=== PATIENT | female | born 1995 | race Caucasian/White ===

== ENCOUNTER 2018-06-19 13:22 | Emergency (ER) | payer MEDICAID, OTHER ==
[~2018-06-19] VITALS: Ht 147.3 cm; Wt 75.0 kg
[2018-06-19] MEDS ORDERED: HYDROCODONE/ACETAMINOPHEN 5/325MG TABLET PO ONE (18:00)
[2018-06-19 19:42] VITALS: BP 131/87
== END 2018-06-19 19:44 | disposition home or self-care (01) ==
LOC: ER 13:57
DX: S60.211A Contusion of right wrist, initial encounter (principal); S20.20XA Contusion of thorax, unspecified, initial encounter; F12.10 Cannabis abuse, uncomplicated; W10.8XXA Fall (on) (from) other stairs and steps, initial encounter; Y93.89 Activity, other specified; Y92.89 Other specified places as the place of occurrence of the external cause
CPT/HCPCS: 29125; 71101; 73110; 73130; 81025; 99283

== ENCOUNTER 2021-04-08 00:37 | Inpatient (IN) | payer MEDICAID, OTHER ==
[2021-04-08] VITALS (8 sets, daily range): BP systolic 89–105; BP diastolic 47–60
[~2021-04-08] VITALS: Ht 157.5 cm; Wt 76.7 kg
[2021-04-08 01:18] LABS: BASOPHILS % 0.8 % (0.0-2.0); EOSINOPHILS % 3.2 % (0.0-5.0); HEMATOCRIT. 40.1 % (36.0-48.0); HEMOGLOBIN. 13.2 g/dL (12.0-16.0); LYMPHOCYTES % 28.9 % (20.0-50.0); MEAN CORPUSCULAR HEMOGLOBIN 28.9 pg (28.0-32.0); MEAN CORPUSCULAR VOLUME 87.7 fL (81.0-99.0); MEAN PLATELET VOLUME 8.6 fl (7.4-10.4); MONOCYTES % 6.6 % (2.0-8.0); NEUTROPHILS % 60.5 % (40.0-76.0); PLATELET 294 x1000/uL (130-400); RED BLOOD CELL COUNT 4.57 mill/uL (4.2-5.4); RED CELL DISTRIBUTION WIDTH 13.8 % (11.6-14.6)
[2021-04-08 01:28] LABS: CHLORIDE 110 mEq/L (98-107)
[2021-04-08] MEDS ORDERED: LEVETIRACETAM 500MG PREMIX 100 ML IV NR (01:30)
[2021-04-08 01:32] LABS: ETHANOL BLOOD < 10 mg/dL
[2021-04-08 01:36] LABS: CREATINE KINASE 162 IU/L (26-192)
[2021-04-08 02:05] LABS: CLARITY URINE CLEAR (CLEAR); COLOR URINE YELLOW (YELLOW); KETONES URINE NEGATIVE (NEGATIVE); LEUKOCYTE ESTERASE URINE TRACE (NEGATIVE); NITRITE URINE NEGATIVE (NEGATIVE); OCCULT BLOOD URINE NEGATIVE (NEGATIVE); PROTEIN URINE NEGATIVE (NEGATIVE); SPECIFIC GRAVITY URINE 1.027 (1.005-1.030); UROBILINOGEN URINE 0.2 E.U./dL (0.2-1.0)
[2021-04-08 02:21] LABS: *AMPHETAMINES SCREEN URINE NEGATIVE (NEGATIVE); *BARBITURATES SCREEN URINE NEGATIVE (NEGATIVE); OPIATES URINE SCREEN NEGATIVE (NEGATIVE); PHENCYCLIDINE URINE SCREEN NEGATIVE (NEGATIVE)
[2021-04-08 02:22] LABS: *COCAINE SCREEN URINE NEGATIVE (NEGATIVE); CANNABINOID URINE SCREEN NEGATIVE (NEGATIVE); METHADONE URINE SCREEN NEGATIVE (NEGATIVE)
[2021-04-08 02:25] LABS: *BENZODIAZEPINES SCREEN URINE PRESUMTIVE POSITIVE (NEGATIVE)
[2021-04-08] MEDS ORDERED: CEFTRIAXONE 1 G PREMIX 50 ML IV NR (03:00)
[2021-04-08] MEDS ORDERED: ONDANSETRON HCL 4MG/2ML INJ IV PRN (08:45)
[2021-04-08] MEDS ORDERED: HYDROCODONE/ACETAMINOPHEN 10/325MG TABLET PO PRN (09:30)
[2021-04-08] MEDS: LEVETIRACETAM 500MG TABLET PO SCH ×2 (09:34→21:26)
[2021-04-08] MEDS ORDERED: NALOXONE HCL 0.4MG/ML VIAL IV PRN (09:45)
[2021-04-08] MEDS: KETOROLAC 30MG/ML VIAL IV PRN (15:04)
[2021-04-08] MEDS: ACETAMINOPHEN 325MG TABLET PO PRN (18:25)
[2021-04-09] VITALS: BP 97/63
[2021-04-09] MEDS: KETOROLAC 30MG/ML VIAL IV PRN ×2 (00:04→16:06)
[2021-04-09] MEDS: LORAZEPAM 2MG/ML CPJ IV PRN ×4 (00:14→20:57)
[2021-04-09 04:00] VITALS: BP 91/40
[2021-04-09 08:20] VITALS: BP 90/51
[2021-04-09] MEDS: LEVETIRACETAM 500MG TABLET PO SCH ×2 (08:49→20:57)
[2021-04-09 09:08] LABS: UCG SCREEN NEGATIVE
[2021-04-09 12:00] VITALS: BP 93/56
[2021-04-09 16:04] VITALS: BP 100/55
[2021-04-09] MEDS: ACETAMINOPHEN 325MG TABLET PO PRN (18:42)
[2021-04-09 20:00] VITALS: BP 117/69
[2021-04-10] VITALS: BP 92/52
[2021-04-10 04:00] VITALS: BP 104/66
[2021-04-10] MEDS: LORAZEPAM 2MG/ML CPJ IV PRN ×3 (06:23→19:09)
[2021-04-10] MEDS: KETOROLAC 30MG/ML VIAL IV PRN ×3 (06:24→19:09)
[2021-04-10] MEDS: MORPHINE SULFATE 2 MG/ML CPJ (NOT FOR IM USE) IV NR (07:20)
[2021-04-10 08:00] VITALS: BP 112/74
[2021-04-10] MEDS: LEVETIRACETAM 500MG TABLET PO SCH ×2 (08:42→20:55)
[2021-04-10] MEDS ORDERED: GADOTERATE MEGLUMINE 5 MMOL/10 ML VIAL IV ONE (10:12)
[2021-04-10 12:00] VITALS: BP 100/61
[2021-04-10] MEDS: ACETAMINOPHEN 325MG TABLET PO PRN (15:46)
[2021-04-10 16:00] VITALS: BP 106/68
[2021-04-10 20:00] VITALS: BP 114/48
[2021-04-11] VITALS: BP 93/55
[2021-04-11] MEDS: HYDROCODONE/ACETAMINOPHEN 5/325MG TABLET PO PRN ×2 (00:53→17:52)
[2021-04-11 04:00] VITALS: BP 104/64
[2021-04-11] MEDS: MORPHINE SULFATE 2 MG/ML CPJ (NOT FOR IM USE) IV NR (07:26)
[2021-04-11 08:00] VITALS: BP 99/59
[2021-04-11] MEDS: LEVETIRACETAM 500MG TABLET PO SCH ×2 (09:49→20:28)
[2021-04-11 12:00] VITALS: BP 105/62
[2021-04-11] MEDS: LORAZEPAM 2MG/ML CPJ IV PRN ×2 (12:00→20:29)
[2021-04-11 16:00] VITALS: BP 107/68
[2021-04-11 20:00] VITALS: BP 95/50
[2021-04-11] MEDS: ACETAMINOPHEN 325MG TABLET PO PRN (20:31)
[2021-04-12] VITALS: BP 91/41
[2021-04-12 04:00] VITALS: BP 105/52
[2021-04-12] MEDS: KETOROLAC 30MG/ML VIAL IV PRN ×2 (06:02→14:35)
[2021-04-12 08:00] VITALS: BP 90/56
[2021-04-12] MEDS: LEVETIRACETAM 500MG TABLET PO SCH ×2 (09:02→21:37)
[2021-04-12 12:00] VITALS: BP 99/54
[2021-04-12] MEDS: LORAZEPAM 2MG/ML CPJ IV PRN ×3 (12:24→17:52)
[2021-04-12 16:00] VITALS: BP 100/59
[2021-04-12 20:00] VITALS: BP 98/58
[2021-04-13] VITALS: BP 105/54
[2021-04-13 04:00] VITALS: BP 102/55
[2021-04-13 08:00] VITALS: BP 95/60
[2021-04-13] MEDS: LEVETIRACETAM 500MG TABLET PO SCH (08:30)
[2021-04-13] MEDS ORDERED: KEPP500 PO (11:07)
[2021-04-13 12:00] VITALS: BP 100/59
[2021-04-13] MEDS: ACETAMINOPHEN 325MG TABLET PO PRN (13:25)
[2021-04-13 16:05] VITALS: BP 100/59
== END 2021-04-13 17:54 | disposition home or self-care (01) | DRG 53 ==
LOC: ER 00:37 → 6WST 03:56 → ENRESERV 07:13
PROVIDERS: ADMIT Internal Medicine; ATTEND Internal Medicine
PROC: 4A10X4Z Monitoring of Central Nervous Electrical Activity, External Approach (ICD-10-PCS; principal; 2021-04-12)
DX: G40.909 Epilepsy, unspecified, not intractable, without status epilepticus (principal); E23.6 Other disorders of pituitary gland; E87.8 Other disorders of electrolyte and fluid balance, not elsewhere classified; D35.2 Benign neoplasm of pituitary gland; G47.00 Insomnia, unspecified; N39.0 Urinary tract infection, site not specified; R53.81 Other malaise; J45.909 Unspecified asthma, uncomplicated; Z80.1 Family history of malignant neoplasm of trachea, bronchus and lung; Z80.42 Family history of malignant neoplasm of prostate; Z82.49 Family history of ischemic heart disease and other diseases of the circulatory system; Z83.3 Family history of diabetes mellitus; Z87.891 Personal history of nicotine dependence
CPT/HCPCS: 36415; 70553; 71045; 72141; 72146; 72148; 80053; 80305; 80320; 81003; 81025; 82140; 82550; 82962; 84443; 85025; 93005; 95816; 97112; 97162; 99285; A9577; C1893; J0696; J1885; J1953; J2060; J2270; G0480

== ENCOUNTER 2021-10-19 12:46 | Emergency (ER) | payer MEDICAID ==
[~2021-10-19] VITALS: Ht 147.3 cm; Wt 71.0 kg
[~2021-10-19 12:46] MED LIST: KEPP500 PO
[2021-10-19] MEDS ORDERED: DIPHENHYDRAMINE 50MG/ML VIAL IV ONE (13:30)
[2021-10-19] MEDS ORDERED: ACETAMINOPHEN 325MG TABLET PO STA (13:30)
[2021-10-19] MEDS ORDERED: PROCHLORPERAZINE 10MG/2ML VIAL IV ONE (13:30)
[2021-10-19] MEDS ORDERED: SODIUM CHLORIDE 0.9% 1,000 ML IV ONE (13:30)
[2021-10-19 14:28] LABS: BASOPHILS % 0.5 % (0.0-2.0); EOSINOPHILS % 2.5 % (0.0-5.0); HEMATOCRIT. 40.1 % (36.0-48.0); HEMOGLOBIN. 13.4 g/dL (12.0-16.0); LYMPHOCYTES % 37.3 % (20.0-50.0); MEAN CORPUSCULAR HEMOGLOBIN 29.4 pg (28.0-32.0); MEAN CORPUSCULAR VOLUME 87.8 fL (81.0-99.0); MONOCYTES % 6.1 % (2.0-8.0); NEUTROPHILS % 53.6 % (40.0-76.0); PLATELET 242 x1000/uL (130-400); RED BLOOD CELL COUNT 4.57 mill/uL (4.2-5.4); RED CELL DISTRIBUTION WIDTH 13.7 % (11.6-14.6)
[2021-10-19 14:37] LABS: CHLORIDE 107 mEq/L (98-107)
[2021-10-19 14:40] LABS: HCG SCREEN NEGATIVE
[2021-10-19 14:50] LABS: ETHANOL BLOOD < 10 mg/dL
[2021-10-19 15:57] LABS: CLARITY URINE CLEAR (CLEAR); COLOR URINE YELLOW (YELLOW); KETONES URINE TRACE (NEGATIVE); LEUKOCYTE ESTERASE URINE NEGATIVE (NEGATIVE); NITRITE URINE NEGATIVE (NEGATIVE); OCCULT BLOOD URINE NEGATIVE (NEGATIVE); PH URINE 7.5 (4.5-8.0); PROTEIN URINE TRACE (NEGATIVE); SPECIFIC GRAVITY URINE 1.029 (1.005-1.030)
[2021-10-19 16:13] LABS: *AMPHETAMINES SCREEN URINE NEGATIVE (NEGATIVE); *BARBITURATES SCREEN URINE NEGATIVE (NEGATIVE); *BENZODIAZEPINES SCREEN URINE NEGATIVE (NEGATIVE); *COCAINE SCREEN URINE NEGATIVE (NEGATIVE); CANNABINOID URINE SCREEN NEGATIVE (NEGATIVE); METHADONE URINE SCREEN NEGATIVE (NEGATIVE); OPIATES URINE SCREEN NEGATIVE (NEGATIVE); PHENCYCLIDINE URINE SCREEN NEGATIVE (NEGATIVE)
[2021-10-19] MEDS ORDERED: KETOROLAC 15MG/ML VIAL IV ONE (16:30)
[2021-10-19] MEDS ORDERED: KETOROLAC 15MG/ML VIAL IV NR (22:30)
[2021-10-19 23:41] VITALS: BP 106/64
== END 2021-10-19 23:40 | disposition short-term general hospital (02) ==
LOC: ER 12:46
DX: R20.2 Paresthesia of skin (principal); R51.9 Headache, unspecified; R07.2 Precordial pain; R41.0 Disorientation, unspecified; R20.0 Anesthesia of skin; H53.143 Visual discomfort, bilateral
CPT/HCPCS: 36415; 70450; 80053; 80305; 80320; 81003; 81025; 82962; 84484; 84703; 85025; 93005; 96361; 96374; 96375; 96376; 99285; J0780; J1200; J1885; J7030; G0480

== ENCOUNTER 2021-10-26 18:18 | Emergency (ER) | payer MEDICAID ==
[~2021-10-26] VITALS: Ht 160 cm; Wt 70.0 kg
[2021-10-26 18:33] VITALS: BP 112/78
[2021-10-26 21:38] LABS: BASOPHILS % 0.7 % (0.0-2.0); EOSINOPHILS % 2.9 % (0.0-5.0); HEMATOCRIT. 40.6 % (36.0-48.0); HEMOGLOBIN. 13.6 g/dL (12.0-16.0); LYMPHOCYTES % 31.7 % (20.0-50.0); MEAN CORPUSCULAR HEMOGLOBIN 29.4 pg (28.0-32.0); MEAN CORPUSCULAR VOLUME 87.8 fL (81.0-99.0); MEAN PLATELET VOLUME 8.7 fl (7.4-10.4); MONOCYTES % 5.9 % (2.0-8.0); NEUTROPHILS % 58.8 % (40.0-76.0); PLATELET 236 x1000/uL (130-400); RED BLOOD CELL COUNT 4.62 mill/uL (4.2-5.4); RED CELL DISTRIBUTION WIDTH 13.5 % (11.6-14.6)
[2021-10-26 21:46] LABS: PROTHROMBIN TIME 11.1 sec (9.6-11.0)
[2021-10-26 21:47] LABS: HCG SCREEN NEGATIVE
[2021-10-26] MEDS ORDERED: NAPR500T7 MT (23:35)
[2021-10-26] MEDS ORDERED: CEPH500C2 MT (23:35)
== END 2021-10-26 23:54 | disposition home or self-care (01) ==
LOC: ER 18:18
DX: I80.8 Phlebitis and thrombophlebitis of other sites (principal)
CPT/HCPCS: 36415; 73130; 84703; 85025; 99284

== ENCOUNTER 2022-02-28 14:46 | Emergency (ER) | payer MEDICAID, OTHER ==
[~2022-02-28] VITALS: Ht 147.3 cm; Wt 71.0 kg
[~2022-02-28 14:46] MED LIST changes: +CEPH500C2 MT; +NAPR500T7 MT
[2022-02-28] MEDS ORDERED: KETOROLAC 30MG/ML VIAL IV STA (18:12)
[2022-02-28] MEDS ORDERED: SODIUM CHLORIDE 0.9% 1,000 ML IV ONE (18:15)
[2022-02-28] MEDS ORDERED: METOCLOPRAMIDE HCL 10MG/2ML VIAL IV ONE (18:15)
[2022-02-28] MEDS ORDERED: DIPHENHYDRAMINE 50MG/ML VIAL IV ONE (18:15)
[2022-02-28 18:44] LABS: BASOPHILS % 0.4 % (0.0-2.0); EOSINOPHILS % 2.2 % (0.0-5.0); HEMATOCRIT. 41.7 % (36.0-48.0); LYMPHOCYTES % 26.7 % (20.0-50.0); MEAN CORPUSCULAR HEMOGLOBIN 29.8 pg (28.0-32.0); MEAN CORPUSCULAR VOLUME 88.8 fL (81.0-99.0); MEAN PLATELET VOLUME 8.8 fl (7.4-10.4); MONOCYTES % 5.7 % (2.0-8.0); PLATELET 239 x1000/uL (130-400); RED CELL DISTRIBUTION WIDTH 14.2 % (11.6-14.6)
[2022-02-28 18:48] LABS: CHLORIDE 106 mEq/L (98-107)
[2022-02-28 18:57] LABS: HCG SCREEN NEGATIVE
[2022-02-28] MEDS ORDERED: IBUP-2028 MT (19:59)
[2022-02-28 22:19] VITALS: BP 123/75
== END 2022-02-28 22:40 | disposition home or self-care (01) ==
LOC: ER 14:46
DX: R51.9 Headache, unspecified (principal); R53.1 Weakness; R42 Dizziness and giddiness; E23.7 Disorder of pituitary gland, unspecified; G40.909 Epilepsy, unspecified, not intractable, without status epilepticus; J45.909 Unspecified asthma, uncomplicated; Z79.899 Other long term (current) drug therapy
CPT/HCPCS: 36415; 70450; 80053; 81025; 84703; 85025; 96374; 96375; 99284; J1200; J1885; J2765; J7030

== ENCOUNTER 2022-06-12 02:33 | Emergency (ER) | payer MEDICAID, OTHER ==
[~2022-06-12] VITALS: Ht 147.3 cm; Wt 66.1 kg
[~2022-06-12 02:33] MED LIST changes: +IBUP-2028 MT
[2022-06-12 02:51] VITALS: BP 106/76
[2022-06-12 06:25] LABS: CLARITY URINE CLEAR (CLEAR); COLOR URINE YELLOW (YELLOW); KETONES URINE NEGATIVE (NEGATIVE); LEUKOCYTE ESTERASE URINE NEGATIVE (NEGATIVE); NITRITE URINE NEGATIVE (NEGATIVE); OCCULT BLOOD URINE NEGATIVE (NEGATIVE); PH URINE 5.5 (4.5-8.0); PROTEIN URINE TRACE (NEGATIVE)
[2022-06-12 07:07] LABS: HEMATOCRIT. 46.7 % (36.0-48.0); HEMOGLOBIN. 15.8 g/dL (12.0-16.0); MEAN CORPUSCULAR VOLUME 88.9 fL (81.0-99.0); MEAN PLATELET VOLUME 9.3 fl (7.4-10.4); PLATELET 159 x1000/uL (130-400); RED BLOOD CELL COUNT 5.25 mill/uL (4.2-5.4); RED CELL DISTRIBUTION WIDTH 14.4 % (11.6-14.6)
[2022-06-12 08:15] LABS: ATYPICAL LYMPHOCYTES 32; PLATELET ESTIMATE NORMAL
== END 2022-06-12 07:34 | disposition home or self-care (01) ==
LOC: ER 02:33
DX: R10.9 Unspecified abdominal pain (principal); Z90.49 Acquired absence of other specified parts of digestive tract
CPT/HCPCS: 36415; 81003; 81025; 85025; 99283

== ENCOUNTER 2022-09-14 13:12 | Emergency (ER) | payer MEDICAID, OTHER ==
[~2022-09-14] VITALS: Ht 147.3 cm; Wt 59.0 kg
[2022-09-14 13:23] VITALS: BP 113/78
[2022-09-14 13:57] LABS: CHLORIDE 110 mEq/L (98-107)
[2022-09-14 13:58] LABS: BASOPHILS % 0.5 % (0.0-2.0); EOSINOPHILS % 1.5 % (0.0-5.0); HEMATOCRIT. 39.3 % (36.0-48.0); HEMOGLOBIN. 13.4 g/dL (12.0-16.0); MEAN CORPUSCULAR HEMOGLOBIN 30.2 pg (28.0-32.0); MEAN CORPUSCULAR VOLUME 88.4 fL (81.0-99.0); MONOCYTES % 5.7 % (2.0-8.0); NEUTROPHILS % 61.3 % (40.0-76.0); PLATELET 282 x1000/uL (130-400); RED BLOOD CELL COUNT 4.45 mill/uL (4.2-5.4); RED CELL DISTRIBUTION WIDTH 14.2 % (11.6-14.6)
[2022-09-14 20:45] LABS: CLARITY URINE TURBID (CLEAR); COLOR URINE YELLOW (YELLOW); KETONES URINE NEGATIVE (NEGATIVE); LEUKOCYTE ESTERASE URINE 1+ (NEGATIVE); NITRITE URINE NEGATIVE (NEGATIVE); OCCULT BLOOD URINE 3+ (NEGATIVE); PH URINE 5.5 (4.5-8.0); PROTEIN URINE TRACE (NEGATIVE); SPECIFIC GRAVITY URINE 1.033 (1.005-1.030); UROBILINOGEN URINE 0.2 E.U./dL (0.2-1.0)
[2022-09-14] MEDS ORDERED: ONDA4TAB50 MT (20:58)
[2022-09-14] MEDS ORDERED: PROT40 MT (20:58)
== END 2022-09-14 21:27 | disposition home or self-care (01) ==
LOC: ER 13:12
DX: R10.11 Right upper quadrant pain (principal); R11.10 Vomiting, unspecified; R30.0 Dysuria; F41.9 Anxiety disorder, unspecified; J45.909 Unspecified asthma, uncomplicated; F32.9 Major depressive disorder, single episode, unspecified; Z90.49 Acquired absence of other specified parts of digestive tract
CPT/HCPCS: 36415; 74176; 76705; 80053; 81003; 81025; 85025; 99285

== ENCOUNTER 2022-12-02 23:42 | Emergency (ER) | payer OTHER ==
[~2022-12-02] VITALS: Ht 147.3 cm; Wt 65.5 kg
[~2022-12-02 23:42] MED LIST changes: +ONDA4TAB50 MT; +PROT40 MT
[2022-12-02 23:55] VITALS: O2SAT 99
[2022-12-03 00:30] LABS: BASOPHILS % 0.7 % (0.0-2.0); EOSINOPHILS % 2.4 % (0.0-5.0); HEMATOCRIT. 38.3 % (36.0-48.0); HEMOGLOBIN. 13.1 g/dL (12.0-16.0); LYMPHOCYTES % 20.1 % (20.0-50.0); MEAN CORPUSCULAR HEMOGLOBIN 30.2 pg (28.0-32.0); MEAN CORPUSCULAR VOLUME 88.7 fL (81.0-99.0); MEAN PLATELET VOLUME 8.3 fl (7.4-10.4); MONOCYTES % 6.3 % (2.0-8.0); NEUTROPHILS % 70.5 % (40.0-76.0); PLATELET 262 x1000/uL (130-400); RED BLOOD CELL COUNT 4.32 mill/uL (4.2-5.4); RED CELL DISTRIBUTION WIDTH 13.8 % (11.6-14.6)
[2022-12-03 00:36] LABS: CHLORIDE 109 mEq/L (98-107)
[2022-12-03 01:16] LABS: CLARITY URINE CLEAR (CLEAR); COLOR URINE YELLOW (YELLOW); KETONES URINE NEGATIVE (NEGATIVE); LEUKOCYTE ESTERASE URINE 1+ (NEGATIVE); NITRITE URINE NEGATIVE (NEGATIVE); OCCULT BLOOD URINE NEGATIVE (NEGATIVE); PH URINE 5.5 (4.5-8.0); PROTEIN URINE NEGATIVE (NEGATIVE); SPECIFIC GRAVITY URINE 1.024 (1.005-1.030); UROBILINOGEN URINE 0.2 E.U./dL (0.2-1.0)
[2022-12-03] MEDS ORDERED: ONDANSETRON 4MG ODT PO ONE (01:45)
[2022-12-03] MEDS ORDERED: ACETAMINOPHEN 325MG TABLET PO ONE (01:45)
[2022-12-03] MEDS ORDERED: IBUP-2030 MT (04:09)
[2022-12-03 04:22] VITALS: BP 105/63; PULSE 76; RESP 16; TEMP 98.1
== END 2022-12-03 04:24 | disposition home or self-care (01) ==
LOC: ER 23:42
DX: S09.90XA Unspecified injury of head, initial encounter (principal); F41.9 Anxiety disorder, unspecified; J45.909 Unspecified asthma, uncomplicated; F32.9 Major depressive disorder, single episode, unspecified; W18.39XA Other fall on same level, initial encounter; Y93.89 Activity, other specified; Y92.89 Other specified places as the place of occurrence of the external cause; Y99.8 Other external cause status
CPT/HCPCS: 99284; 81025; 36415; 93005; 70450; 80053; 81003; 85025; 84484; Q0162

== ENCOUNTER 2023-07-30 12:09 | Emergency (ER) | payer MEDICAID, OTHER ==
[~2023-07-30] VITALS: Ht 147.3 cm; Wt 64.5 kg
[~2023-07-30 12:09] MED LIST changes: +IBUP-2030 MT
[2023-07-30 13:00] VITALS: O2SAT 97
[2023-07-30 13:55] LABS: BASOPHILS % 0.6 % (0.0-2.0); EOSINOPHILS % 2.3 % (0.0-5.0); HEMATOCRIT. 42.8 % (36.0-48.0); HEMOGLOBIN. 14.3 g/dL (12.0-16.0); LYMPHOCYTES % 29.7 % (20.0-50.0); MEAN CORPUSCULAR HEMOGLOBIN 29.8 pg (28.0-32.0); MEAN CORPUSCULAR HGB CONC 33.3 g/dL (31.0-37.0); MEAN CORPUSCULAR VOLUME 89.6 fL (81.0-99.0); MEAN PLATELET VOLUME 8.4 fl (7.4-10.4); MONOCYTES % 4.2 % (2.0-8.0); NEUTROPHILS % 63.2 % (40.0-76.0); PLATELET 284 x1000/uL (130-400); RED BLOOD CELL COUNT 4.78 mill/uL (4.2-5.4); RED CELL DISTRIBUTION WIDTH 14.6 % (11.6-14.6); WHITE BLOOD COUNT 8.7 x1000/uL (4.5-11.0)
[2023-07-30 14:01] LABS: ALANINE AMINOTRANSFERASE 13 IU/L (10-49); ALBUMIN 5.1 g/dL (3.2-4.8); ASPARTATE AMINOTRANSFERASE 19 IU/L (<34); BILIRUBIN TOTAL 0.6 mg/dL (0.1-1.0); CARBON DIOXIDE 24 mEq/L (21-32); CHLORIDE 107 mEq/L (98-107); CREATININE 0.6 mg/dL (0.6-1.0); GLUCOSE 91 mg/dL (70-105); POTASSIUM 3.6 mEq/L (3.5-5.1); PROTEIN TOTAL 8.3 g/dL (6.0-8.3); SODIUM 138 mEq/L (136-145); UREA NITROGEN BLOOD 9 mg/dL (9-23)
[2023-07-30 14:15] LABS: HCG SCREEN NEGATIVE
[2023-07-30 15:01] LABS: CLARITY URINE CLEAR (CLEAR); COLOR URINE YELLOW (YELLOW); GLUCOSE URINE NEGATIVE (NEGATIVE); KETONES URINE NEGATIVE (NEGATIVE); LEUKOCYTE ESTERASE URINE NEGATIVE (NEGATIVE); NITRITE URINE NEGATIVE (NEGATIVE); OCCULT BLOOD URINE NEGATIVE (NEGATIVE); PH URINE 5.5 (4.5-8.0); PROTEIN URINE NEGATIVE (NEGATIVE); SPECIFIC GRAVITY URINE 1.018 (1.005-1.030); UROBILINOGEN URINE 0.2 E.U./dL (0.2-1.0)
[2023-07-30 17:52] VITALS: TEMP 98.3
[2023-07-30] MEDS: ACETAMINOPHEN 325MG TABLET PO ONE (17:52)
[2023-07-30 18:07] VITALS: BP 105/70; PULSE 79; RESP 16
== END 2023-07-30 18:11 | disposition home or self-care (01) ==
LOC: ER 12:09
DX: R10.9 Unspecified abdominal pain (principal); J45.909 Unspecified asthma, uncomplicated; Z88.1 Allergy status to other antibiotic agents; Z90.49 Acquired absence of other specified parts of digestive tract; Z98.890 Other specified postprocedural states; Z90.89 Acquired absence of other organs; Z87.440 Personal history of urinary (tract) infections
CPT/HCPCS: 80053; 81003; 81025; 84703; 83690; 85025; 36415; 99283; Z7610

== ENCOUNTER 2024-03-15 16:11 | Emergency (ER) | payer MEDICAID ==
[~2024-03-15] VITALS: Ht 147.3 cm; Wt 73.0 kg
[2024-03-15 16:14] VITALS: O2SAT 98
[2024-03-15 16:54] LABS: BASOPHILS % 0.6 % (0.0-2.0); EOSINOPHILS % 2.2 % (0.0-5.0); HEMATOCRIT. 38.9 % (36.0-48.0); HEMOGLOBIN. 13.1 g/dL (12.0-16.0); LYMPHOCYTES % 23.2 % (20.0-50.0); MEAN CORPUSCULAR HEMOGLOBIN 30.3 pg (28.0-32.0); MEAN CORPUSCULAR HGB CONC 33.6 g/dL (31.0-37.0); MEAN CORPUSCULAR VOLUME 90.2 fL (81.0-99.0); MEAN PLATELET VOLUME 8.5 fl (7.4-10.4); MONOCYTES % 6.6 % (2.0-8.0); NEUTROPHILS % 67.4 % (40.0-76.0); PLATELET 262 x1000/uL (130-400); RED BLOOD CELL COUNT 4.32 mill/uL (4.2-5.4); RED CELL DISTRIBUTION WIDTH 13.1 % (11.6-14.6); WHITE BLOOD COUNT 9.4 x1000/uL (4.5-11.0)
[2024-03-15 17:02] LABS: CHLORIDE 105 mEq/L (98-107); POTASSIUM 4.3 mEq/L (3.5-5.1); SODIUM 139 mEq/L (136-145)
[2024-03-15 17:03] LABS: CARBON DIOXIDE 28 mEq/L (21-32)
[2024-03-15 17:04] LABS: CALCIUM 9.4 mg/dL (8.7-10.4)
[2024-03-15 17:08] LABS: CREATININE 0.7 mg/dL (0.6-1.0)
[2024-03-15 17:09] LABS: GLUCOSE 118 mg/dL (70-105); UREA NITROGEN BLOOD 11 mg/dL (9-23)
[2024-03-15 18:00] LABS: CLARITY URINE CLEAR (CLEAR); COLOR URINE YELLOW (YELLOW); GLUCOSE URINE NEGATIVE (NEGATIVE); KETONES URINE NEGATIVE (NEGATIVE); LEUKOCYTE ESTERASE URINE NEGATIVE (NEGATIVE); NITRITE URINE NEGATIVE (NEGATIVE); OCCULT BLOOD URINE NEGATIVE (NEGATIVE); PH URINE 6.5 (4.5-8.0); PROTEIN URINE NEGATIVE (NEGATIVE); SPECIFIC GRAVITY URINE 1.025 (1.005-1.030); UROBILINOGEN URINE 0.2 E.U./dL (0.2-1.0)
[2024-03-15 18:46] LABS: ALANINE AMINOTRANSFERASE 19 IU/L (10-49); ASPARTATE AMINOTRANSFERASE 19 IU/L (<34)
[2024-03-15 18:47] LABS: ALBUMIN 4.3 g/dL (3.2-4.8); BILIRUBIN TOTAL 0.2 mg/dL (0.1-1.0); PROTEIN TOTAL 6.8 g/dL (6.0-8.3)
[2024-03-15 18:48] LABS: BILIRUBIN DIRECT < 0.1 mg/dL (<=3.0)
[2024-03-15] MEDS ORDERED: ONDA-239 PO (20:58)
[2024-03-15 21:20] VITALS: BP 115/68; PULSE 64; RESP 16; TEMP 36.83628; O2SAT 100
== END 2024-03-15 21:20 | disposition home or self-care (01) ==
LOC: ER 16:11
DX: R14.0 Abdominal distension (gaseous) (principal); F41.9 Anxiety disorder, unspecified; J45.909 Unspecified asthma, uncomplicated; F43.10 Post-traumatic stress disorder, unspecified; M41.9 Scoliosis, unspecified; Z79.899 Other long term (current) drug therapy; Z88.1 Allergy status to other antibiotic agents; Z90.49 Acquired absence of other specified parts of digestive tract; Z90.89 Acquired absence of other organs
CPT/HCPCS: 36415; 74176; 80048; 80076; 81003; 81025; 85025; 99284

== ENCOUNTER 2024-04-29 13:10 | Emergency (ER) | payer MEDICAID ==
[~2024-04-29] VITALS: Ht 147.3 cm; Wt 76.0 kg
[~2024-04-29 13:10] MED LIST changes: +NAPR-1486 MT; -NAPR500T7 MT; +ONDA-239 PO
[2024-04-29 13:24] VITALS: TEMP 98.5; O2SAT 99
[2024-04-29] MEDS: IBUPROFEN 600MG TABLET PO NR (16:31)
[2024-04-29] MEDS: ACETAMINOPHEN 500MG TABLET PO NR (16:31)
[2024-04-29 16:33] VITALS: BP 112/73; PULSE 79; RESP 16; O2SAT 99
== END 2024-04-29 16:36 | disposition home or self-care (01) ==
LOC: ER 13:10
DX: K64.9 Unspecified hemorrhoids (principal); F41.9 Anxiety disorder, unspecified; J45.909 Unspecified asthma, uncomplicated; Z98.890 Other specified postprocedural states; Z86.59 Personal history of other mental and behavioral disorders; Z90.49 Acquired absence of other specified parts of digestive tract; Z90.89 Acquired absence of other organs
CPT/HCPCS: 99283